=== PATIENT | male | born 1965 ===

== ENCOUNTER → 2019-01-06 20:29 | Outpatient (REF) | payer OTHER, SELFPAY ==
[2019-01-06 20:32] LABS: Bacteria Urine None Seen; RBC Urine None Seen (0-5/HPF); WBC Urine None Seen (0-5/HPF)
[2019-01-06 21:07] LABS: HEMOLYSIS < 15 (0-50)
[2019-01-06 21:15] LABS: Add Manual Diff / Slide Review NO; Basophils Absolute Auto 100 /uL (0-100); Basophils Percent Auto 1.2 % (0-2); Eosinophils Absolute Auto 200 /uL (0-450); Eosinophils Percent Auto 3.2 % (2-4); Hematocrit 43.4 % (41-53); Hemoglobin 14.5 g/dL (13.5-17.5); Lymphocytes Absolute Auto 1500 /uL (1100-4500); Lymphocytes Percent Auto 30.4 % (25-40); Mean Corpuscular HGB Conc 33.5 % (30-36); Mean Corpuscular Hemoglobin 28.2 PG (26-34); Monocytes Absolute Auto 500 /uL (0-900); Monocytes Percent Auto 9.5 % (3-14); Neutrophils Absolute Auto 2700 /uL (1500-7000); Neutrophils Percent Auto 55.7 % (50-75); Platelet Count 262 X10^3/uL (150-400); Red Blood Cell Count 5.16 X10^6/uL (4.5-5.9); Red Cell Distribution Width 14.3 % (11.6-14.8); White Blood Cell Count 4.9 X10^3/uL (4.5-11.0)
[2019-01-06 21:17] LABS: Alanine Aminotransferase 56 IU/L (21-72); Albumin 4.4 g/dL (3.5-5.0); Albumin Globulin Ratio 1.6 (1.0-2.8); Alkaline Phosphatase 77 U/L (38-126); Aspartate Aminotransferase 41 IU/L (17-59); BUN Creatinine Ratio 28.9 (6-22); Bilirubin Total 0.4 mg/dL (0.2-1.3); Blood Urea Nitrogen 26 mg/dL (9-20); Calcium 9.7 mg/dL (8.4-10.2); Carbon Dioxide 27 mmol/L (22-32); Chloride 101 mmol/L (98-107); Cholesterol 224 mg/dL (140-199); Estimated Glomerular Filt Rate > 60.0 mL/min (>60); Globulin 2.7 g/dL (1.7-4.1); Glucose 87 mg/dL (70-100); HDL Cholesterol 67 mg/dL (40-60); LDL Cholesterol Calculated 143 mg/dL (<100); Potassium 4.5 mmol/L (3.4-5.1); Sodium 138 mmol/L (137-145); Total Protein 7.1 g/dL (6.3-8.2); Triglycerides 70 mg/dL (35-150)
[2019-01-06 21:29] LABS: Appearance Urine UA CLEAR; Bilirubin Urine UA NEGATIVE (NEGATIVE); Color Urine UA YELLOW; Glucose Urine UA NEGATIVE (Negative); Ketones Urine UA 1+ (NEGATIVE); Leukocyte Esterase Urine UA NEGATIVE (NEGATIVE); Nitrite Urine UA NEGATIVE (Negative); Occult Blood Urine UA NEGATIVE (Negative); Protein Urine UA NEGATIVE (Negative); Urobilinogen Urine UA 0.2 E.U./dL (0.2); pH Urine UA 5.5 (4.5-8.0)
[2019-01-06 21:38] LABS: Culture Indicated Urine Cult Not Indicated
[2019-01-06 21:43] LABS: Erythrocyte Sedimentation Rate 2 MM/HR (0-15)
[2019-01-06 22:29] LABS: Thyroid Stimulating Hormone 1.57 uIU/mL (0.47-4.68)
[2019-01-06 22:34] LABS: Free T3, Triiodothyronine Free 3.35 pg/mL (2.77-5.27); T4 Total Thyroxine 7.91 ug/dL (5.5-11.0)
[2019-01-07 00:36] LABS: Cortisol Random 7.69 ug/dL
[2019-01-07 01:29] LABS: C-Reactive Protein Quant < 0.5 mg/dL (<1.0)
== END ==
LOC: LAB 20:29
PROVIDERS: Visit Provider Naturopath
DX: L40.0 Psoriasis vulgaris (principal); R41.840 Attention and concentration deficit; G47.9 Sleep disorder, unspecified; K30 Functional dyspepsia; R53.83 Other fatigue
CPT/HCPCS: 36415; 80053; 80061; 81001; 82533; 82627; 82728; 84403; 84436; 84443; 84481; 85025; 85651; 86140